=== PATIENT | male | born 1990 | race Caucasian/White ===

== ENCOUNTER 2023-01-30 07:26 | Day surgery (SDC) | payer OTHER ==
[2023-01-27 08:53] VITALS: BMI 33.6
[2023-01-30] MEDS ORDERED: BUPIVACAINE HCL/EPINEPHRINE/PF 30 ML VIAL IJ ONE (07:36)
[2023-01-30] MEDS ORDERED: MIDAZOLAM HCL 2 MG/2 ML SINGLE DOSE VIAL ONE (08:39)
[2023-01-30] MEDS ORDERED: ONDANSETRON 4 MG/2 ML VIAL ONE ×2 (08:39→10:45)
[2023-01-30] MEDS ORDERED: PROPOFOL 20 ML ONE (08:39)
[2023-01-30] MEDS ORDERED: DEXAMETHASONE SOD PHOSPHATE 4 MG/1 ML VIAL ONE ×2 (08:39→10:45)
[2023-01-30] MEDS ORDERED: ceFAZolin SODIUM 1 GM VIAL ONE (09:36)
[2023-01-30] MEDS ORDERED: HYDROmorphone HCL/PF 1 MG/ML VIAL ONE (10:18)
[2023-01-30] MEDS ORDERED: FENTANYL CITRATE/PF 50 MCG/ML VIAL ONE ×2 (11:10→11:20)
[2023-01-30] MEDS ORDERED: KETOROLAC TROMETHAMINE 30 MG/1 ML VIAL ONE (12:04)
[2023-01-30] MEDS ORDERED: oxyCODONE HCL 5 MG TABLET ONE (12:04)
[2023-01-30] MEDS ORDERED: oxyCODONE HCL 5 MG TABLET PO PRN ×2 (13:20)
[2023-01-30] MEDS ORDERED: ONDANSETRON 4 MG/2 ML VIAL IVPUSH PRN (13:20)
[2023-01-30] MEDS ORDERED: LACTATED RINGERS SOLUTION 1,000 ML IV SCH (13:30)
[2023-01-30 14:00] VITALS: RESP 17; TEMP 97.2
[2023-01-30 14:03] VITALS: PULSE 87
[2023-01-30 14:10] VITALS: BP 150/95
== END 2023-01-30 13:00 | disposition home or self-care (01) ==
LOC: FASU 07:26
PROVIDERS: ATTEND Orthopaedic Surgery
PROC: 0SQD4ZZ Repair Left Knee Joint, Percutaneous Endoscopic Approach (ICD-10-PCS; principal; 2023-01-30 09:46)
DX: S83.242A Other tear of medial meniscus, current injury, left knee, initial encounter (principal); X58.XXXA Exposure to other specified factors, initial encounter; Y92.9 Unspecified place or not applicable; Y93.9 Activity, unspecified
CPT/HCPCS: 94760; 97116-GP